=== PATIENT | female | born 1960 | race Caucasian/White ===

== ENCOUNTER 2017-05-21 17:23 | Emergency (ER) | payer OTHER | END 2017-05-21 17:52 | disposition home or self-care (01) | LOC: E/R 17:23 | DX: J06.9 Acute upper respiratory infection, unspecified (principal) | CPT/HCPCS: 99284; Z7502 ==

== ENCOUNTER 2018-03-28 16:05 | Emergency (ER) | payer OTHER | END 2018-03-28 17:22 | disposition home or self-care (01) | LOC: FTE 16:05 | DX: R05 Cough (principal) | CPT/HCPCS: 99283; Z7502 ==

== ENCOUNTER 2018-09-14 16:26 | Emergency (ER) | payer OTHER ==
[2018-09-14] MEDS: CYCLOBENZAPRINE 10 MG TAB PO (17:55)
[2018-09-14] MEDS: KETOROLAC 60 MG INJ IM (17:56)
[2018-09-14] MEDS: DEXAMETHASONE 10 MG/ML 1 ML INJ IM (17:56)
== END 2018-09-14 18:56 | disposition home or self-care (01) ==
LOC: FTE 16:26
DX: M54.32 Sciatica, left side (principal)
CPT/HCPCS: 96372; 99284-25